=== PATIENT | female | born 1995 | race Caucasian/White ===

== ENCOUNTER → 2023-05-27 12:46 | Outpatient (CLI) | payer BC, SELFPAY ==
--- NOTE | ~2023-05-27 | US_ITS ---
EXAMINATION: US axilla LT DATE: 05/27/2023 13:02 INDICATION: Left axillary lump. TECHNIQUE: Multiple grayscale and Doppler ultrasound images of the left axilla were obtained. COMPARISON: None FINDINGS: There is no abnormal mass or lymphadenopathy in the left axilla. IMPRESSION: 1. No abnormal mass or lymphadenopathy in the left axilla. Reviewed, dictated and finalized at location E. ENT ACCOUNTS COORDINATOR
== END ==
PROVIDERS: PCP Physician Assistant; Visit Provider Physician Assistant
DX: R22.32 Localized swelling, mass and lump, left upper limb (principal)
CPT/HCPCS: 76882